=== PATIENT | male | born 1970 | race Caucasian/White ===

== ENCOUNTER 2023-10-20 13:00 | Outpatient (RCR) | payer OTHER, SELFPAY ==
--- NOTE | 2023-06-23 09:54 | ONC.NURNOTE ---
Dx: Prostate cancer
--- NOTE | 2023-06-26 11:38 | URNOTE ---
Received request for prior auth for Toy ([id number]). This has been approved by [facility], 06/23/2023-12/24/2022
[2023-06-27 09:09] VITALS: BP 107/69; PULSE 55; RESP 18; TEMP 36.5; O2SAT 95
[2023-06-27] MEDS: LEUPROLIDE ACETATE 7.5 MG (SQ) SYRINGE SUBCUT (09:19)
[2023-07-25 11:10] VITALS: BP 131/86; PULSE 57; RESP 16; TEMP 36.1; O2SAT 94
[2023-07-25] MEDS: LEUPROLIDE ACETATE 22.5 MG (SQ) SYRINGE SUBCUT (11:35)
[2023-10-20] MEDS: LEUPROLIDE ACETATE 22.5 MG (SQ) SYRINGE SUBCUT (13:14)
== END 2023-12-24 23:59 | disposition home or self-care (01) ==
LOC: CCIC 13:00
PROVIDERS: Visit Provider Clinical Nurse Specialist
DX: C61 Malignant neoplasm of prostate (principal)
CPT/HCPCS: 96401; J9217

== ENCOUNTER 2024-07-02 10:30 | Outpatient (RCR) | payer OTHER, SELFPAY ==
--- NOTE | 2024-01-13 08:15 | URNOTE ---
Leuprolide ([id number]) has been approved 01/08/2024-07/08/2024.
[2024-01-13 13:23] VITALS: BP 120/77; PULSE 67; RESP 16; TEMP 36.3; O2SAT 96
[2024-01-13] MEDS: LEUPROLIDE ACETATE 22.5 MG (SQ) SYRINGE SUBCUT (13:38)
[2024-04-06 10:26] VITALS: BP 105/66; PULSE 63; RESP 16; TEMP 35.8; O2SAT 94
[2024-04-06] MEDS: LEUPROLIDE ACETATE 22.5 MG (SQ) SYRINGE SUBCUT (10:37)
[2024-07-02 10:29] VITALS: BP 137/84; PULSE 62; RESP 17; TEMP 36.2; O2SAT 94
[2024-07-02] MEDS: LEUPROLIDE ACETATE 22.5 MG (SQ) SYRINGE SUBCUT (11:14)
== END 2024-07-11 23:59 | disposition home or self-care (01) ==
LOC: CCIC 10:30
PROVIDERS: Visit Provider Clinical Nurse Specialist
DX: C61 Malignant neoplasm of prostate (principal)
CPT/HCPCS: 96401; J9217